=== PATIENT | male | born 1965 | race Caucasian/White ===

== ENCOUNTER 2022-08-04 09:51 | Day surgery (SDC) | payer OTHER ==
[2022-08-01 10:54] LABS: Absolute Lymphocytes (CBC) 2.4 K/uL (0.7-4.9); Hematocrit 45.5 % (39.6-49.0); Lymphocytes % 41.1 % (15.3-44.8); MCV 90.4 fL (80-100); MPV 8.3 fL (7.6-11.3); RBC Red Blood Cell Count 5.04 M/uL (4.33-5.43)
[2022-08-01 11:04] LABS: Potassium 4.3 mEq/L (3.5-5.1)
--- NOTE | 2022-08-01 16:05 | EKG ---
Test Date: 2022-08-01 Test Time: 10:35:31 Recording Engineer: ALEXANDRA MEASUREMENT RESULTS: Intervals: Rate: 71 WA: 184 QRSD: 112 QT: 384 QTc: 417 [place]: P: 68 WA: 184 QRS: -53 T: 43 INTERPRETIVE STATEMENTS: Normal sinus rhythm Left axis deviation Inferior infarct, age undetermined Abnormal ECG No previous ECG available for comparison Electronically Signed On 08-01-22 16:04:34 CDT by Edgardo Alegre
--- NOTE | 2022-08-02 14:10 | EKG ---
Test Date: 2022-08-01 Test Time: 10:35:58 Backend Developer: ALEXANDRA MEASUREMENT RESULTS: Intervals: Rate: 69 NV: 184 QRSD: 112 QT: 386 QTc: 413 [place]: P: 61 NV: 184 QRS: -45 T: 39 INTERPRETIVE STATEMENTS: Normal sinus rhythm Left anterior fascicular block Inferior infarct, age undetermined Abnormal ECG Compared to ECG 08/01/2022 10:35:31 Left anterior fascicular block now present Left-axis deviation no longer present Myocardial infarct finding still present Electronically Signed On 08-02-22 14:08:18 CDT by Garrett Bender
[2022-08-04] MEDS: Ringers Lactate 1,000 ML IV ONE ×2 (10:30→11:30)
[2022-08-04] MEDS ORDERED: MIDAZOLAM HCL 2 MG/2 ML INJ ONE (11:32)
[2022-08-04] MEDS ORDERED: LIDOCAINE 2% MPF 5 ML VIAL ONE (11:32)
[2022-08-04] MEDS ORDERED: FENTANYL CITR 100 MCG/2 ML ONE ×2 (11:32→12:01)
[2022-08-04] MEDS ORDERED: propofoL 200 MG/20 ML VIAL IV ONE ×2 (11:32→11:58)
[2022-08-04] MEDS ORDERED: ONDANSETRON 4 MG/2 ML VIAL ONE (11:32)
[2022-08-04] MEDS ORDERED: dexAMETHasone 4 MG/ML VIAL ONE (11:52)
[2022-08-04] MEDS: FENTANYL CITR 100 MCG/2 ML ONE ×3 (12:31→12:48)
[2022-08-04] MEDS ORDERED: KETOROLAC 30 MG/ML INJ ONE (12:37)
[2022-08-04] MEDS ORDERED: HYDROCODONE/APAP 7.5/325 MG TAB ONE (13:21)
[2022-08-04 13:48] VITALS: BP 110/54; TEMP 98.1; O2SAT 96
--- NOTE | 2022-08-04 22:13 | OP ---
Date of Procedure: 08/04/2022 Surgeon: Mj Mcguire MD Preoperative Diagnosis: Right carpal tunnel syndrome. Postoperative Diagnosis: Right carpal tunnel syndrome. Procedure: Right open carpal tunnel release. Estimated Blood Loss: Less than 3 cc. Complications: There were no complications. Specimen: There are no pathology specimens sent. Indications: Mr. Alvarado is a 57-year-old male who was having pain and numbness in his hand for some time. He was seen and evaluated in my office and sent to Neurology, which demonstrates carpal tunne l syndrome. Conservative measures have not been beneficial and risks, benefits, and alternatives to carpal tunnel release have been discussed with him including different methods of doing this. He sta domenico he understands things as presented and wishes to proceed with open carpal tunnel release. Description Of Procedure: The patient was taken to the operating room and placed in supine position. General anesthesia was obtained by staff. Following this, well-padded tourniquet was placed on sup erior right arm. Right upper extremity was then prepped and draped in the usual sterile fashion for procedure. Following this, the arm was then elevated, but not exsanguinated. Tourniquet was raised. A standard incision was made just parallel to the thenar crease with slight ulnar deviation at the most distal wrist crease. This was taken down carefully through skin only with meticulous hemostasis being maintained using the bipolar. After this, the incision was deepened to the level of the renteria r fascia. The palmar fascia was then divided longitudinally and any obstructions over the transverse carpal ligament were then gently swept to the side. Following this, a small katty was made in the tr ansverse carpal ligament, which revealed the underlying carpal tunnel structure. After this, the tra nsverse carpal ligament was then released in a proximal to distal direction until there were no const ricting bands. It was then released in a distal to proximal direction until there were no constricti ng bands, which does include a fairly significant amount of volar forearm fascia. After this, the ne rve was examined and was found to be in continuity. The tourniquet was then dropped. There was foun d to be no significant bleeding and the skin was closed using interrupted nylon sutures. He was then placed in a well-padded sterile dressing and taken to recovery room in good condition. It should be noted that at no time were any sharp instruments placed outside the direct visual operative field. There were no complications. SE/MODPhan Voice ID: [id number] Report ID: [id number]
== END 2022-08-04 13:25 | disposition home or self-care (01) ==
LOC: OR 09:51
PROVIDERS: ATTEND Orthopaedic Surgery
PROC: 01N50ZZ Release Median Nerve, Open Approach (ICD-10-PCS; principal; 2022-08-04 11:30)
DX: G56.01 Carpal tunnel syndrome, right upper limb (principal)
CPT/HCPCS: 93005 ×2; 85025; 80048; 36415; 64721; J2704 ×2; J1100; J2001; J2250; J3010 ×3; J2405; J7120

== ENCOUNTER 2022-11-12 20:03 | Observation (INO) | payer OTHER ==
--- OUTSIDE RECORDS SUMMARY | 2022-11-12 20:06 | XMS REPORT | Continuity of Care Document ---
:1965 Author Organization [facility] t Address [address] [place] [address] [address] [place] [address] Care Team Providers Name Role Phone Himanshu Begum Attending Clinician Problems Condition Condition Condition Status Onset Resolution Last Treating Co mments Source Name Details Category Date Date Treatment Clinician Date [id number] Numbness Problem Comm on in both [facility] Carpal Carpal Problem Active 2022-07-09 Froylan meagan tunnel tunnel 11:39:39 l syndrome syndrome Ted n (disorder) (disorder) Active Problem 07/09/2022 [facility] [place] Allergies, Adverse Reactions, Alerts This patient has no known allergies or adverse reactions. Social History Social Habit Start Date Stop Date Quantity Comments Source History of Tobacco Use Co mmon [facility] Sex Assigned At Com mon [facility] Smoking Status Start Date Stop Date Source Former Smoker 2022-04-06 00:00:00 2022-04-06 00:00:00 [facility] Medications Ordered Filled Start Stop Current Ordering Indication Dosage Frequency Signature Comments Components Source Medication Medication Date Date Medication? Clinician (SIG) Name Name No Known No Known No Common Medications Medications [facility] Vital Signs Vital Name Observation Time Observation Value Comments Source height 2022-04-06 15:00:00 78 [in_i] [facility] weight 2022-04-06 15:00:00 296.5 [lb_av] [facility] temperature 2022-04-06 15:00:00 98.2 [degF] [facility] bmi 2022-04-06 15:00:00 34.26 kg/m2 [facility] blood pressure 2022-04-06 15:00:00 130 mm[Hg] [facility] blood pressure 2022-04-06 15:00:00 84 mm[Hg] [facility] diastolic [facility] Procedures This patient has no known procedures. Encounters Start End Encounter Admission Attending Care Care Encounter Source Date/Time Date/Time Type Type Clinicians Facility Department ID 2022-09-11 Outpatient STLMLC STLMLC [id number] Common 14:16:01 [id number] [facility] 2022-04-07 Outpatient STLMLC STLMLC [id number] Common 08:51:03 [id number] [facility] 2022-04-06 Outpatient STLMLC STLMLC [id number] Common 14:55:04 [id number] [facility] 2022-07-06 2022-07-07 Outpatient MHIE MNA [id number] Memoria 13:15:00 04:59:59 Neurology 00 suzi Levine 2022-07-06 2022-07-06 Outpatient SIENNA Begum MHMISCHER [id number] 08:15:00 23:59:59 Himanshu 00 Yoni 2022-07-06 2022-07-06 Outpatient MHIE MHIE [id number] [facility] 08:15:00 08:15:00 00 suzi Levine 2022-04-10 2022-04-10 (TEL) STLMLC STLMLC [id number] Co mmon 00:00:00 00:00:00 [facility] 2022-04-06 2022-04-06 CONSULT - STLMLC STLMLC [id number] Common 00:00:00 00:00:00 OFFICE, L3 [facility] Results This patient has no known results.
[2022-11-12 20:41] LABS: Absolute Lymphocytes (CBC) 3.1 K/uL (0.7-4.9); Hematocrit 45.2 % (39.6-49.0); Lymphocytes % 44.4 % (15.3-44.8); MCV 90.1 fL (80-100); MPV 8.4 fL (7.6-11.3); Platelets 219 thou/uL (152-406); RBC Red Blood Cell Count 5.02 M/uL (4.33-5.43)
[2022-11-12] MEDS ORDERED: ASPIRIN 81 MG CHEWABLE TABLET ONE (20:49)
[2022-11-12 20:50] LABS: Protime INR 0.98
[2022-11-12 21:00] LABS: Albumin 4.1 g/dL (3.4-5.0); Bilirubin Direct 0.1 mg/dL (0-0.2); Bilirubin Indirect, Calculated 0.3 mg/dL (0.2-0.8); Bilirubin Total 0.4 mg/dL (0.2-1.0); Magnesium 2.1 mg/dL (1.6-2.4); Potassium 3.8 mEq/L (3.5-5.1); Protein, Total 8.1 g/dL (6.4-8.2); Troponin High Sensitivity 4.9 pg/mL (<58.9)
--- NOTE | 2022-11-12 21:13 | RAD REPORT ---
EXAM DESCRIPTION: Emily Single View11/12/2022 8:40 pm CLINICAL HISTORY: Chest pain COMPARISON: 2013 FINDINGS: The lungs appear clear of acute infiltrate. The heart is normal size IMPRESSION: No acute abnormalities displayed
--- NOTE | 2022-11-12 21:14 | EDPHYS ---
Physician Documentation [facility] Name: Carmelo Alvarado Age: 57 yrs Sex: Male : 1965 Arrival Date: 11/12/2022 Time: 20:03 Bed 4 Private MD: ED Physician Otoniel Dubois HPI: 11/12 21:12 This 57 yrs old Male presents to ER via Ambulatory with complaints of Chest Pain. sb4 22:23 Onset: The symptoms/episode began/occurred gradually. Associated signs and symptoms: sb4 The patient has no apparent associated signs or symptoms. Modifying factors: The patient symptoms are alleviated by nothing, the patient symptoms are aggravated by nothing. The patient has experienced similar episodes in the past, a few times. The patient has been recently seen by a physician: a design/animation instructor. patient states he has been experiencing some chest pain and palpitations. he has a history of hypertension and hyperlipidemia but has not been taking his statins. Historical: - Allergies: 20:30 No Known Allergies; vc1 - Home Meds: 20:30 losartan 100 mg oral tablet daily [Active]; hydrochlorothiazide 12.5 mg Oral capsule vc1 every morning [Active]; - PMHx: 20:30 Hypertensive disorder; vc1 - PSHx: 20:30 carpal tunnel; vc1 - Immunization history:: Client reports receiving the 2nd dose of the Covid vaccine. - Social history:: Smoking status: Patient denies any tobacco usage or history of. ROS: 22:23 Constitutional: Negative for fever, chills, and weight loss, Eyes: Negative for injury, sb4 pain, redness, and discharge, ENT: Negative for injury, pain, and discharge, Neck: Negative for injury, pain, and swelling, Respiratory: Negative for shortness of breath, cough, wheezing, and pleuritic chest pain, Abdomen/GI: Negative for abdominal pain, nausea, vomiting, diarrhea, and constipation, Back: Negative for injury and pain, MS/Extremity: Negative for injury and deformity, Skin: Negative for injury, rash, and discoloration. 22:23 Cardiovascular: Positive for chest pain, orthopnea, Negative for edema, orthopnea. 22:23 All other systems are negative. Exam: 22:23 Constitutional: This is a well developed, well nourished patient who is awake, alert, sb4 and in no acute distress. Head/Face: Normocephalic, atraumatic. Eyes: Extra-ocular motions intact. Periorbital areas with no swelling, redness, or edema. ENT: Mucous membranes moist. Cardiovascular: Regular rate and rhythm with a normal S1 and S2. Respiratory: Lungs have equal breath sounds bilaterally, clear to auscultation and percussion. No rales, rhonchi or wheezes noted. No increased work of breathing, no retractions or nasal flaring. Abdomen/GI: Soft, non-tender, no distension. Skin: Warm, dry with normal turgor. Normal color with no rashes, no lesions, and no evidence of cellulitis. MS/ Extremity: Pulses equal, no cyanosis. Neurovascular intact. Full, normal range of motion. Neuro: Awake and alert, GCS 15, oriented to person, place, time, and situation. Cranial nerves II-XII grossly intact. Motor strength 5/5 in all extremities. Sensory grossly intact. Cerebellar exam normal. Normal gait. Vital Signs: 20:26 BP 174 / 81; Pulse 71; Resp 20; Pulse Ox 97% ; Weight 131.54 kg; Height 6 ft. 6 in. ; vc1 Pain 0/10; 20:44 Temp 98.1(O); kd3 22:52 BP 125 / 69; Pulse 59; Resp 18; Pulse Ox 97% ; kd3 20:26 Body Mass Index 33.51 (131.54 kg, 198.12 cm) vc1 20:26 Pain Scale: Adult vc1 MDM: 20:15 Patient medically screened. sb4 22:23 Differential diagnosis: acute VT, unstable angina, PE, palpitations, anxiety. Data sb4 reviewed: vital signs, nurses notes, lab test result(s), EKG, radiologic studies, and as a result, I will discharge patient. Consideration of Admission/Observation Patient was admitted/placed on observation. Management of patient was discussed with the following: Hospitalist: Clair Diamond NP. Care significantly affected by the following chronic conditions: Hypertension. Counseling: I had a detailed discussion with the patient and/or guardian regarding: the historical points, exam findings, and any diagnostic results supporting the discharge/admit diagnosis, the presence of at least one elevated blood pressure reading (>120/80) during this emergency department visit, lab results, radiology results, the need for further work-up and treatment in the hospital. 11/12 20:16 Order name: Basic Metabolic Panel; Complete Time: 21:03 sb4 11/12 20:16 Order name: CBC with Diff; Complete Time: 20:42 sb4 11/12 20:16 Order name: D-Dimer; Complete Time: 20:50 sb4 11/12 20:16 Order name: LFT's; Complete Time: 21:03 sb4 11/12 20:16 Order name: Magnesium; Complete Time: 21:03 sb4 11/12 20:16 Order name: NT PRO-BNP; Complete Time: 21:03 sb4 11/12 20:16 Order name: PT-INR; Complete Time: 20:50 sb4 11/12 20:16 Order name: Troponin HS; Complete Time: 21:03 sb4 11/12 20:16 Order name: XRAY Chest (1 view); Complete Time: 21:16 sb4 11/12 20:16 Order name: EKG; Complete Time: 20:17 sb4 11/12 21:31 Order name: CONS Physician Consult EDAZ 11/12 20:16 Order name: Cardiac monitoring; Complete Time: 20:35 sb4 11/12 20:16 Order name: EKG - Nurse/Tech; Complete Time: 20:28 sb4 11/12 20:16 Order name: IV Saline Lock; Complete Time: 20:35 sb4 11/12 20:16 Order name: Labs collected and sent; Complete Time: 20:35 sb4 11/12 20:16 Order name: O2 Per Protocol; Complete Time: 20:35 sb4 11/12 20:16 Order name: O2 Sat Monitoring; Complete Time: 20:35 sb4 EC:34 Rate is 68 beats/min. Rhythm is regular, Normal Sinus Rhythm. RI interval is normal at sb4 184 msec. QRS interval is normal at 120 msec. QT interval is normal at 408 msec. No Q waves. T waves are Normal. No ST changes noted. Clinical impression: NSR w/ Non-specific ST/T Changes. Interpreted by me. Reviewed by me. Administered Medications: 20:44 Drug: Aspirin PO Chewable Tablet 324 mg Route: PO; kd3 22:53 Follow up: Response: No adverse reaction kd3 Disposition: 11/13 03:11 Co-signature as Attending Physician, Otoniel Dubois MD I reviewed the patient's care rt provided by the Advanced Practice Provider and agree with the diagnosis and treatment plan. Disposition Summary: 11/12/22 21:13 Hospitalization Ordered Hospitalization Status: Inpatient Admission sb4 Location: Telemetry/MedSurg (Inpatient) sb4 Condition: Fair sb4 Problem: new sb4 Symptoms: are unchanged sb4 Bed/Room Type: Standard sb4 Room Assignment: [facility](11/12/22 21:53) eb1 Provider: Anthony Holland(11/12/22 22:22) sb4 Diagnosis - Chest pain, unspecified sb4 Forms: - Medication Reconciliation Form sb4 - SBAR form sb4 - Leadership Thank You Letter sb4 Signatures: Dispatcher [employer] EDReyna Prather RN RN eb1 Shonda Del Rosario RN RN kd3 Mariella Shaihd RN RN vc1 Maris Olsen PADanielC PADanielC sb4 Otoniel Dubois MD MD rt Corrections: (The following items were deleted from the chart) 11/12 20:32 20:30 Home Meds: Lisinopril Oral; vc1 vc1 21:53 21:13 sb4 eb1 22:22 21:13 Raúl Livingston sb4 sb4
--- NOTE | 2022-11-12 21:14 | ER ---
Nurse's Notes [facility] Name: Carmelo Alvarado Age: 57 yrs Sex: Male : 1965 Arrival Date: 11/12/2022 Time: 20:03 Bed 4 Private MD: Diagnosis: Chest pain, unspecified Presentation: 11/12 20:26 Chief complaint: Patient states: I was supposed to have a heart cath tomorrow but I'm vc1 having palpitations and Dr. Bender told me to come up there. Coronavirus screen: Vaccine status: Patient reports receiving the 2nd dose of the covid vaccine. Plus 2 boosters Client denies travel out of the [place] in the last 14 days. At this time, the client does not indicate any symptoms associated with coronavirus-19. Ebola Screen: Patient negative for fever greater than or equal to 101.5 degrees Fahrenheit, and additional compatible Ebola Virus Disease symptoms Patient denies exposure to infectious person. Patient denies travel to an Ebola-affected area in the 21 days before illness onset. No symptoms or risks identified at this time. Initial Sepsis Screen: Does the patient meet any 2 criteria? No. Patient's initial sepsis screen is negative. Does the patient have a suspected source of infection? No. Patient's initial sepsis screen is negative. Risk Assessment: Do you want to hurt yourself or someone else? Patient reports no desire to harm self or others. Onset of symptoms is unknown. 20:26 Method Of Arrival: Ambulatory vc1 20:26 Acuity: KRISH 3 vc1 Triage Assessment: 20:32 General: Appears in no apparent distress. Behavior is calm, cooperative, appropriate vc1 for age. Pain: Denies pain. EENT: No deficits noted. No signs and/or symptoms were reported regarding the EENT system. Neuro: Level of Consciousness is awake, alert, obeys commands, Oriented to person, place, time, situation, Appropriate for age. Cardiovascular: Reports palpitations, shortness of breath, Capillary refill < 3 seconds Patient's skin is warm and dry. Respiratory: Reports shortness of breath at rest Airway is patent Respiratory effort is even, unlabored, Respiratory pattern is regular, symmetrical. GI: No deficits noted. No signs and/or symptoms were reported involving the gastrointestinal system. : No deficits noted. No signs and/or symptoms were reported regarding the genitourinary system. Derm: No deficits noted. No signs and/or symptoms reported regarding the dermatologic system. Musculoskeletal: No deficits noted. No signs and/or symptoms reported regarding the musculoskeletal system. Historical: - Allergies: 20:30 No Known Allergies; vc1 - Home Meds: 20:30 losartan 100 mg oral tablet daily [Active]; hydrochlorothiazide 12.5 mg Oral capsule vc1 every morning [Active]; - PMHx: 20:30 Hypertensive disorder; vc1 - PSHx: 20:30 carpal tunnel; vc1 - Immunization history:: Client reports receiving the 2nd dose of the Covid vaccine. - Social history:: Smoking status: Patient denies any tobacco usage or history of. Screenin:35 [facility] ED Fall Risk Assessment (Adult) History of falling in the last 3 months, kd3 including since admission No falls in past 3 months (0 pts) Confusion or Disorientation No (0 pts) Intoxicated or Sedated No (0 pts) Impaired Gait No (0 pts) Mobility Assist Device Used No (0 pt) Altered Elimination No (0 pt) Score/Fall Risk Level 0 - 2 = Low Risk Maintained a safe environment. Abuse screen: Denies threats or abuse. Denies injuries from another. Nutritional screening: No deficits noted. Tuberculosis screening: No symptoms or risk factors identified. Assessment: 20:36 Pain: Denies pain. kd3 20:36 Pain: Pain began gradually. kd3 20:36 General: Appears in no apparent distress. Behavior is calm, cooperative. Neuro: Level kd3 of Consciousness is awake, alert, obeys commands, Oriented to person, place, time, situation. Cardiovascular: Patient's skin is warm and dry. Respiratory: Airway is patent Trachea midline Respiratory effort is even, unlabored, Respiratory pattern is regular, symmetrical. Vital Signs: 20:26 BP 174 / 81; Pulse 71; Resp 20; Pulse Ox 97% ; Weight 131.54 kg; Height 6 ft. 6 in. ; vc1 Pain 0/10; 20:44 Temp 98.1(O); kd3 22:52 BP 125 / 69; Pulse 59; Resp 18; Pulse Ox 97% ; kd3 20:26 Body Mass Index 33.51 (131.54 kg, 198.12 cm) vc1 20:26 Pain Scale: Adult vc1 ED Course: 20:06 Patient arrived in ED. ag3 20:15 Maris Olsen PA-C is PHCP. sb4 20:15 Otoniel Dubois MD is Attending Physician. sb4 20:18 Shonda Del Rosario, RN is Primary Nurse. kd3 20:30 Triage completed. vc1 20:33 Arm band placed on right wrist. vc1 20:33 Patient has correct armband on for positive identification. Bed in low position. Call vc1 light in reach. Client placed on continuous cardiac and pulse oximetry monitoring. NIBP monitoring applied. 20:35 Basic Metabolic Panel Sent. kd3 20:35 CBC with Diff Sent. kd3 20:35 D-Dimer Sent. kd3 20:35 LFT's Sent. kd3 20:35 Magnesium Sent. kd3 20:35 NT PRO-BNP Sent. kd3 20:35 PT-INR Sent. kd3 20:35 Troponin HS Sent. kd3 20:35 No provider procedures requiring assistance completed. Inserted saline lock: 20 gauge kd3 in left antecubital area, using aseptic technique. Blood collected. Patient maintains SpO2 saturation greater than 95% on room air. 20:36 Provided Education on: . kd3 20:41 XRAY Chest (1 view) In Process Unspecified. EDMS 21:13 Raúl Livingston MD is Hospitalizing Provider. sb4 22:22 Anthony Holland is Hospitalizing Provider. sb4 22:53 Patient admitted, IV remains in place. kd3 Administered Medications: 20:44 Drug: Aspirin PO Chewable Tablet 324 mg Route: PO; kd3 22:53 Follow up: Response: No adverse reaction kd3 Medication: 20:35 VIS not applicable for this client. kd3 Outcome: 21:13 Decision to Hospitalize by Provider. sb4 22:52 Admitted to Med/surg kd3 22:52 Condition: stable 22:52 Discharge instructions given to patient, Instructed on the need for admit, Demonstrated understanding of instructions, follow-up care. 23:02 Patient left the ED. kd3 Signatures: Dispatcher [employer] EDMS Silke Colon ag3 Shonda Del Rosario RN RN kd3 Mariella Shahid RN RN vc1 Maris Olsen PA-C PA-C sb4 Corrections: (The following items were deleted from the chart) 20:32 20:30 Home Meds: Lisinopril Oral; vc1 vc1
[2022-11-12] MEDS ORDERED: ONDANSETRON 4 MG/2 ML VIAL IV PRN (21:33)
[2022-11-12] MEDS ORDERED: ACETAMINOPHEN 500 MG TAB PO PRN (21:33)
--- NOTE | 2022-11-12 21:40 | P.HP ---
Certification for Inpatient Patient admitted to: Observation With expected LOS: <2 Midnights Patient will require the following post-hospital care: None Practitioner: I am a practitioner with admitting privileges, knowledge of patient current condition, hospital course, and medical plan of care. Services: Services provided to patient in accordance with Admission requirements found in Title 42 Section 412.3 of the Code of Federal Regulations Patient History Date of Service: 11/12/22 Reason for admission: Chest pain History of Present Illness: 57 year old male with past medical history of HTN, HLD, PVC presents to ER with Chest pain. He reports chest pain worse with exertion. He reports associated shortness of breath. Shortness of breath worse with exertion, reports feeling like chest pressure, "tight band 5/10." Reports chest pain has been intermittent over the last month. He denies Fever, chills, NVD, cough, abdominal pain. plan to admit for chest pain rule out SD, for Dr Bender to see in am. EKG NSR rate 68 no STEMI, lab review, CXR unremarkable. Allergies No Known Allergies Allergy (Verified 08/01/22 10:24) Home Medications: Losartan Potassium 50 mg PO BID 08/01/22 - Past Medical/Surgical History -: HLD -: HTN -: Knee -: Choley -: Carpel Tunnel Psychosocial/ Personal History: , lives with spouse, occasional ETOH on weekends - Social History Smoking Status: Never smoker Alcohol use: Yes CD- Drugs: No Caffeine use: Yes Review of Systems 10-point ROS is otherwise unremarkable Physical Examination - Physical Exam General: Alert, In no apparent distress, Oriented x3 HEENT: Atraumatic, Normocephalic, PERRLA Neck: Supple, 2+ carotid pulse no bruit Respiratory: Clear to auscultation bilaterally, Normal air movement Cardiovascular: No edema, Normal pulses, Regular rate/rhythm, Normal S1 S2 Gastrointestinal: Normal bowel sounds, Soft and benign Musculoskeletal: No clubbing, No swelling Integumentary: No rashes, No breakdown Neurological: Normal speech, Sensation intact, Cranial nerves 3-12 intact - Studies Laboratory Data (last 24 hrs) 11/12/22 11/12/22 11/12/22 20:32 20:32 20:32 WBC 6.90 Hgb 15.5 Hct 45.2 Plt Count 219 PT 10.8 INR 0.98 Sodium 138 Potassium 3.8 BUN 14 Creatinine 1.12 Glucose 103 Magnesium 2.1 Total Bilirubin 0.4 AST 19 ALT 47 Alkaline Phosphatase 69 Assessment and Plan - Plan Assessment/Plan Chest pain rule out SD HTN HLD DVT Assessment/Plan Chest pain rule out SD card consult, tele analgesics, 02 2l prn asa, antihld, nitro prn, EKG NSR rate 68 no STEMI HTN HLD resume approp home meds DVT lovenox Diet NPO after MN Full Code Discharge Plan: Home Plan to discharge in: 24 Hours - Advance Directives Does patient have a Living Will: No Does patient have a Durable POA for Healthcare: No - Code Status/Comfort Care Code Status: Full Code Physician Review: Patient Assessed, Agree with Above Assessment and Plan Critical Care: No Time Spent Managing Pts Care (In Minutes): 50
[2022-11-12] MEDS ORDERED: NITROGLYCERIN 0.4 MG/TAB SL PRN (21:50)
[2022-11-12] MEDS ORDERED: MORPHINE 2 MG/ML SYR IV PRN (21:50)
[2022-11-12 23:18] VITALS: BMI 29.1
[2022-11-12] MEDS: LORAZEPAM 1 MG TABLET PO PRN (23:23)
[2022-11-13 03:53] LABS: Absolute Lymphocytes (CBC) 3.3 K/uL (0.7-4.9); Hematocrit 40.8 % (39.6-49.0); Lymphocytes % 47.3 % (15.3-44.8); MCV 89.6 fL (80-100); MPV 8.7 fL (7.6-11.3); Platelets 214 thou/uL (152-406); RBC Red Blood Cell Count 4.55 M/uL (4.33-5.43)
[2022-11-13 04:17] LABS: Magnesium 1.9 mg/dL (1.6-2.4); Potassium 3.8 mEq/L (3.5-5.1)
[2022-11-13 06:21] LABS: Specific Gravity 1.013 (1.005-1.030); Urine Bilirubin NEGATIVE (Negative); Urine Blood Negative (Negative); Urine Clarity Clear (Clear); Urine Color Colorless (Yellow); Urine Glucose NEGATIVE (Negative); Urine Protein NEGATIVE (Negative); Urine Urobilinogen Normal (Normal)
[2022-11-13] MEDS ORDERED: ASPIRIN 325 MG TAB PO SCH (09:00)
[2022-11-13] MEDS ORDERED: ENOXAPARIN 40 MG/0.4 ML SQ SCH (09:00)
[2022-11-13] MEDS: LORAZEPAM 1 MG TABLET PO PRN ×2 (10:00→15:22)
--- NOTE | 2022-11-13 12:53 | P.PN ---
Subjective Date of Service: 11/13/22 Chief Complaint: Chest pain Patient has no new complaint. He denies any chest pain. Vitals are stable. Physical Examination - Vital Signs Temperature: 97.6 F Blood Pressure: 131/75 Pulse: 60 Respirations: 16 Pulse Ox (%): 95 - Studies Laboratory Data (last 24 hrs) 11/12/22 11/12/22 11/12/22 20:32 20:32 20:32 WBC 6.90 Hgb 15.5 Hct 45.2 Plt Count 219 PT 10.8 INR 0.98 Sodium 138 Potassium 3.8 BUN 14 Creatinine 1.12 Glucose 103 Magnesium 2.1 Total Bilirubin 0.4 AST 19 ALT 47 Alkaline Phosphatase 69 Assessment And Plan - Plan Physical Exam General: Alert, In no apparent distress, Oriented x3 Neck: Supple, 2+ carotid pulse no bruit Respiratory: Clear to auscultation bilaterally, Normal air movement Cardiovascular: No edema, Normal pulses, Regular rate/rhythm, Normal S1 S2 Gastrointestinal: Normal bowel sounds, Soft and benign, nondistended, no organomegaly. Musculoskeletal: No swelling Integumentary: No rashes, No breakdown Neurological: Normal speech, Sensation intact, Cranial nerves 3-12 intact Plan Assessment/Plan Chest pain rule out NC HTN HLD CAD Diagnosis Chest pain rule out NC Patient with with significant coronary artery disease risk factors including personal history Patient seen by cardiology Dr. Bender who is considering cardiac catheterization tomorrow d Continue tele analgesics. asa, antihld, nitro prn, HTN HLD Continue approp home meds DVT lovenox Full Code
--- NOTE | 2022-11-13 13:11 | EKG ---
Test Date: 2022-11-12 Test Time: 20:23:21 Radio Machinist: ALEKSANDRA MEASUREMENT RESULTS: Intervals: Rate: 68 RI: 184 QRSD: 120 QT: 408 QTc: 433 [place]: P: 57 RI: 184 QRS: -41 T: 55 INTERPRETIVE STATEMENTS: Normal sinus rhythm Left axis deviation Cannot rule out Inferior infarct, age undetermined Abnormal ECG Compared to ECG 08/01/2022 10:35:58 Left-axis deviation now present Left anterior fascicular block no longer present Myocardial infarct finding still present Electronically Signed On 11-13-22 13:09:35 CDT by Garrett Bender
[2022-11-13] MEDS ORDERED: FENTANYL CITR 100 MCG/2 ML ONE (17:36)
[2022-11-13] MEDS ORDERED: MIDAZOLAM HCL 2 MG/2 ML INJ ONE (17:37)
[2022-11-13] MEDS ORDERED: ATROPINE SULF 1 MG/10 ML SYR IV ONE (17:45)
--- NOTE | 2022-11-13 19:15 | CON ---
Date of Consultation: 11/13/2022 Reason For Consultation: Chest pain. History Of Present Illness: A 57-year-old male, history of hypertension, dyslipidemia, well known to me in the office. He has been seen multiple times for chest pain. We did a stress test on him and he has apical reversible ischemia. The patient was instructed to go to the emergency room with any f urther chest pain. He started having pain, left-sided, radiates to the left upper extremities and it is getting more frequent as per his report, so he was admitted through the emergency room. I saw leah johnston by bedside this morning. He was chest pain free and plan to proceed with coronary angiogram. Past Medical History: 1.Hypertension. 2.Dyslipidemia. Medications: Refer to reconciliation sheet for detailed list. Allergies: NO KNOWN DRUG ALLERGIES. Family History: No premature coronary artery disease or cancer. Social History: He does not smoke or drink. Does not use drugs. Review of Systems: All systems reviewed and they were negative except what mentioned in HPI. Physical Examination: Vital Signs: Reviewed. Head and Neck: Pupils are equal, reactive to light. Intact eye movements. No JVD. No cervical lym phadenopathy. Neck is supple. Thyroid is not enlarged. Lungs: Clear to auscultation bilaterally. No rhonchi, wheezing, or crackles. No accessory muscle u se. Heart: Regular rate and rhythm. No extra sounds. Abdomen: Soft, nontender. Bowel sounds positive. No organomegaly. No masses or hernia. No rigidi ty or rebound. Extremities: No edema, clubbing, or cyanosis. Intact pulses. Skin: No rash. Neurologic: Alert, awake, oriented x3. No acute focal deficits appreciated. Investigations: Labs were reviewed. Assessment And Recommendations: 1.Chest pain, more frequent with abnormal stress test. Keep n.p.o., plan for coronary angiogram tod ay, and load with 325 mg of aspirin and then 81 mg daily. 2.Hypertension. Blood pressure is controlled. Continue home medications. 3.Dyslipidemia. Continue statin. SR/MODL Voice ID: [id number] Report ID: [id number]
--- NOTE | 2022-11-13 20:45 | OP ---
Date of Procedure: 11/13/2022 Surgeon: DELFINO MONTEMAYOR Procedures Performed: 1.Selective coronary angiogram. 2.Left heart catheterization. Indication: Chest pain with abnormal stress test. Access: Right femoral artery 6-Tajik closed with 6-Tajik Angio-Seal. Complications: None. Bleeding: Less than 20 mL. Anesthesia: Total sedation time was 20 minutes, used fentanyl and Versed. Description Of Procedure: After risks, benefits, and alternatives were explained, patient agreed to the procedure and signed informal consent. Patient was brought into the cardiac catheterization [facility], prepped and draped in usual sterile fashion. Then, after a time-out, I accessed the right fe moral artery using micropuncture kit, fluoroscopy and with ultrasound guidance, placed 6-Tajik Pinna lexa sheath, took 6-Tajik JL4 catheter into the aortic root over a J-wire, engaged left main, took st andard views and then exchanged for a 6-Tajik JR4 catheter, engaged the RCA, took standard views and the catheter was pushed over the wire into the LV. Measured the LVEDP. Pullback did not record gra dient. Then I removed the catheter and the sheath, 6-Tajik Angio-Seal was used for closure. Good h emostasis. Findings: 1.Left main; large and normal. 2.LAD; proximal segment is normal and then it bifurcates to dual LAD system. He has a very large di agonal, in fact it is larger than the LAD, wraps around the apex. There is some luminal irregulariti es throughout but no significant stenosis. 3.Left circumflex is very large and codominant. Ostial to proximal 20% and then the OM is very larg e, also has 20% in proximal segment. 4.RCA is moderate size, codominant with luminal irregularities. 5.Elevated LVEDP between 15 and 20 mmHg. Conclusion: 1.No significant coronary artery disease. 2.Mild elevated LVEDP. Plan: Continue aspirin and statin and cardiac risk factor modifications. Again the patient can be r eleased from the Cardiology standpoint after his bedrest. SR/MODL Voice ID: [id number] Report ID: [id number]
--- NOTE | 2022-11-13 20:56 | P.DS ---
Admission Date: 11/12/22 Discharge Date: 11/13/22 Disposition: ROUTINE DISCHARGE Discharge Condition: GOOD Reason for Admission: Chest pain Procedures: Chest x-ray 11/12/2022 FINDINGS: The lungs appear clear of acute infiltrate. The heart is normal size IMPRESSION: No acute abnormalities displayed Heart catheterization right femoral 11/13/2022 Per cardiology clean coronaries, see cardiology note for further info Brief History of Present Illness: 57 year old male with past medical history of HTN, HLD, PVC presents to ER with Chest pain. He reports chest pain worse with exertion. He reports associated shortness of breath. Shortness of breath worse with exertion, reports feeling like chest pressure, "tight band 5/10." Reports chest pain has been intermittent over the last month. He denies Fever, chills, NVD, cough, abdominal pain. plan to admit for chest pain rule out PR, for Dr Bender to see in am. EKG NSR rate 68 no STEMI, lab review, CXR unremarkable. Hospital Course: Patient was admitted for ACS rule out after having abnormal stress test. Heart catheterization was performed today which cardiology states showed normal coronaries with no occlusive disease. Patient has been stable left heart catheterization for 3 hours now is ambulatory without any significant swelling or hematoma noted to cath site, he is chest pain-free at this time. Cardiology recommends follow-up this coming Sunday, also recommend follow-up with PCP. Continue home medications. Return precautions given. Vital Signs/Physical Exam: Temp Pulse Resp BP Pulse Ox 97.7 F 59 15 137/78 94 11/13/22 18:30 11/13/22 18:30 11/13/22 18:30 11/13/22 18:30 11/13/22 16:00 General: Alert, In no apparent distress, Oriented x3 HEENT: Atraumatic, PERRLA, EOMI Neck: Supple, JVD not distended Respiratory: Clear to auscultation bilaterally, Normal air movement Cardiovascular: Regular rate/rhythm, Normal S1 S2 Gastrointestinal: Normal bowel sounds, No tenderness Musculoskeletal: No tenderness Integumentary: No rashes Neurological: Normal speech, Normal tone, Normal affect Lymphatics: No axilla or inguinal lymphadenopathy Laboratory Data at Discharge: WBC 7.00 thou/uL (4.3-10.9) 11/13/22 03:07 Hgb 13.9 g/dL (13.6-17.9) D 11/13/22 03:07 Hct 40.8 % (39.6-49.0) 11/13/22 03:07 Plt Count 214 thou/uL (152-406) 11/13/22 03:07 PT 10.8 SECONDS (9.5-12.5) 11/12/22 20:32 INR 0.98 11/12/22 20:32 Sodium 138 mEq/L (136-145) 11/13/22 03:07 Potassium 3.8 mEq/L (3.5-5.1) 11/13/22 03:07 BUN 16 mg/dL (7-18) 11/13/22 03:07 Creatinine 1.01 mg/dL (0.70-1.30) 11/13/22 03:07 Glucose 116 mg/dL (74-106) H 11/13/22 03:07 Magnesium 1.9 mg/dL (1.6-2.4) 11/13/22 03:07 Total Bilirubin 0.4 mg/dL (0.2-1.0) 11/12/22 20:32 AST 19 U/L (15-37) 11/12/22 20:32 ALT 47 U/L (16-61) 11/12/22 20:32 Alkaline Phosphatase 69 U/L (45-117) 11/12/22 20:32 Home Medications: Losartan Potassium 50 mg PO BID 08/01/22 hydroCHLOROthiazide [Hydrochlorothiazide*] 12.5 cap PO DAILY 11/12/22 Diet: AHA Activity: Ad abebe Followup: Luba Tee DO, DO [Primary Care Provider] - 1-2 Weeks Garrett Bender MD [ACTIVE - CAN ADMIT] - 11/17/22 Time spent managing pt's care (in minutes): 25
[2022-11-13 20:59] VITALS: BP 131/82; TEMP 97
[2022-11-13] MEDS ORDERED: ATORVASTATIN 20 MG TAB PO SCH (21:00)
[2022-11-13 22:43] VITALS: O2SAT 96
== END 2022-11-13 21:31 | disposition home or self-care (01) ==
LOC: ER 20:03 → ERHOLD 21:28 → 2ND 22:06
PROVIDERS: ADMIT Internal Medicine; ATTEND Internal Medicine
PROC: 4A023N7 Measurement of Cardiac Sampling and Pressure, Left Heart, Percutaneous Approach (ICD-10-PCS; principal; 2022-11-13)
PROC: B2111ZZ Fluoroscopy of Multiple Coronary Arteries using Low Osmolar Contrast (ICD-10-PCS; 2022-11-13)
DX: R07.9 Chest pain, unspecified (principal); I10 Essential (primary) hypertension; I25.10 Atherosclerotic heart disease of native coronary artery without angina pectoris; E78.5 Hyperlipidemia, unspecified; I49.3 Ventricular premature depolarization; I99.8 Other disorder of circulatory system; Z90.49 Acquired absence of other specified parts of digestive tract
CPT/HCPCS: 93005; 85025 ×2; 80048 ×2; 36415; 83735 ×2; 85610; 85379; 80076; 81003; 84484 ×3; 83880; 71045; 99285; 93458; J2250; J3010; 76937; C1760; C1893; G0269; J0461; Q9966